=== PATIENT | male | born 2000 | race Caucasian/White ===

== ENCOUNTER 2025-02-12 01:30 | Emergency (ER) | payer SELFPAY ==
[2025-02-12 01:43] VITALS: BP 127/79; PULSE 75; RESP 20; TEMP 97.7; BMI 28.2
[2025-02-12] MEDS ORDERED: DIPHTH,PERTUSS(ACELL),TET 0.5 ML DISP.SYRIN IM ONE ×2 (03:19)
[2025-02-12] MEDS: DIPHTH,PERTUSS(ACELL),TET 0.5 ML DISP.SYRIN IM ONE (03:20)
[2025-02-12] MEDS ORDERED: LIDOCAINE 5% TOPICAL PATCH ONE (03:24)
[2025-02-12] MEDS ORDERED: ACETAMINOPHEN 325 MG TABLET (FP) ONE (03:24)
[2025-02-12] MEDS: LIDOCAINE 5% TOPICAL PATCH TP ONE (03:25)
[2025-02-12] MEDS: ACETAMINOPHEN 500 MG TABLET (FP) PO ONE (03:25)
[2025-02-12] MEDS ORDERED: LIDOCAINE PATCH REMOVAL MC SCH (22:00)
== END 2025-02-12 03:36 | disposition home or self-care (01) ==
LOC: JER 01:30
PROC: 0HQ1XZZ Repair Face Skin, External Approach (ICD-10-PCS; principal; 2025-02-12)
PROC: 3E0234Z Introduction of Serum, Toxoid and Vaccine into Muscle, Percutaneous Approach (ICD-10-PCS; 2025-02-12)
DX: S01.81XA Laceration without foreign body of other part of head, initial encounter (principal); Z23 Encounter for immunization; Y04.8XXA Assault by other bodily force, initial encounter; Y99.0 Civilian activity done for income or pay
CPT/HCPCS: 90715; 99284-25